=== PATIENT | female | born 1950 | race Caucasian/White ===

== ENCOUNTER 2019-12-25 18:29 | Emergency (ER) | payer BC, MEDICARE ==
[~2019-12-25] VITALS: Ht 167.6 cm; Wt 122.5 kg
[~2019-12-25 18:29] MED LIST: ADULT LOW DOSE81 MG; KLOR-CON20 MEQ; LASIX40 MG; METFORMIN HYDRO25 GM; NORVASC10 MG; TOPROL XL50 MG; ZESTRIL20 MG
--- NOTE | 2019-12-25 20:24 | Diagnostic Imaging Report ---
EXAMINATION: Head CT HISTORY: Status post fall, trauma, pain COMPARISON: None. TECHNIQUE: Multidetector axial images were obtained without contrast from the foramen magnum to the vertex . The images were reconstructed using brain and bone algorithms. Thin section brain images were reformatted into coronal and sagittal planes. Image quality: Motion/streaking artifact limits the evaluation of the skull base and posterior cranial fossa. Dose modulation, iterative reconstruction, and/or weight based adjustment of the mA/kV was utilized to reduce the radiation dose to as low as reasonably achievable. FINDINGS: Parenchyma: 1. No abnormal densities. 2. No mass or hemorrhage. No CT evidence of acute territorial vascular insult. Extra-axial spaces:No abnormal density. No extra-axial fluid collections Brain volume: Normal for age. Ventricles: No hydrocephalus or displacement. Arteries: No density suggestive of thrombus. Dural sinuses: No abnormal density. Foramen magnum: No mass, Chiari malformation, or basilar invagination. Sella: No obvious mass. Paranasal/mastoid sinuses: Imaged portions unremarkable. Skull/Scalp: No lytic or blastic lesions. No fractures. IMPRESSION: No intracranial abnormalities, particularly no post traumatic hemorrhage. Signed by: Dr. Shaila Houston M.D. on 12/25/2019 8:22 PM
--- NOTE | 2019-12-25 20:29 | Diagnostic Imaging Report ---
Exam: Right elbow, 3 views History: Fall on right elbow Comparison: None. Findings: There is normal bone mineralization. No acute, displaced fracture or dislocation. Joint spaces relatively preserved. Enthesophyte at the ulna triceps insertion. No anterior or posterior fat pad elevation. No abnormal soft tissue calcification or soft tissue defect. No soft tissue swelling. Impression: 1. No acute, displaced fracture or dislocation. Signed by: Dr. Nathen Eubanks M.D. on 12/25/2019 8:26 PM
[2019-12-25] MEDS ORDERED: NEOMYCIN/POLYMYX/BACITR OINT 0.9 GM PKT TOP ONE (22:00)
[2019-12-25] MEDS ORDERED: HYDROCODONE/APAP 5MG-325MG TAB PO ONE (22:15)
== END 2019-12-25 22:40 | disposition home or self-care (01) ==
LOC: ER 18:29
DX: S06.0X1A Concussion with loss of consciousness of 30 minutes or less, initial encounter (principal); S51.011A Laceration without foreign body of right elbow, initial encounter; W10.8XXA Fall (on) (from) other stairs and steps, initial encounter; Y93.01 Activity, walking, marching and hiking; Y92.008 Other place in unspecified non-institutional (private) residence as the place of occurrence of the external cause
CPT/HCPCS: 70450; 99284

== ENCOUNTER 2022-12-25 10:56 | Outpatient (RCR) | payer MEDICARE | END 2022-12-29 | LOC: PT 10:56 | PROVIDERS: ATTEND Physical Medicine & Rehabilitation | DX: M25.512 Pain in left shoulder (principal); M25.612 Stiffness of left shoulder, not elsewhere classified ==

== ENCOUNTER 2023-02-05 10:00 | Outpatient (RCR) | payer MEDICARE | END 2023-02-28 | LOC: PT 10:00 | PROVIDERS: ATTEND Physical Medicine & Rehabilitation | DX: M25.512 Pain in left shoulder (principal) ==

== ENCOUNTER → 2023-04-30 | Outpatient (RCR) | payer MEDICARE | LOC: PT 04-01 16:46 | PROVIDERS: ATTEND Orthopaedic Surgery Sports Medicine | DX: M75.102 Unspecified rotator cuff tear or rupture of left shoulder, not specified as traumatic (principal) ==

== ENCOUNTER 2023-08-20 15:03 | Emergency (ER) | payer MEDICARE ==
[~2023-08-20] VITALS: Ht 167.6 cm; Wt 102.5 kg
[~2023-08-20 15:03] MED LIST changes: +CARDIZEM LA300 MG; +CEPHALEXIN500 MG PO; +COLCHICINE0.6 M1 PO; +CYMBALTA30 MG PO; -LASIX40 MG; +LASIX40 MG PO; +METFORMIN HCL500 MG PO; +METOPROLOL SUCC50 MG PO; +MINOCYCLINE HCL50 MG PO; +PRAVASTATIN SOD40 MG; +SYNTHROID125 MCG PO; +VASCEPA1 GM; +VITAMIN D350 MCG; -ZESTRIL20 MG; +ZESTRIL20 MG PO
[2023-08-20 15:39] VITALS: O2SAT 97
[2023-08-20] MEDS ORDERED: KETOROLAC TROMETHAMINE 30 MG/ML VIAL IV STA (15:53)
[2023-08-20] MEDS ORDERED: CLINDAMYCIN PHOS 900MG/ 50ML 50 ML IV ONE (16:15)
[2023-08-20 16:17] LABS: BASOPHILS % 0.4 % (0.0-1.0); EOSINOPHILS # (AUTO) 0.1 (0.0-0.4); HEMATOCRIT 37.4 % (34.2-44.1); HEMOGLOBIN 13.2 g/dL (12.0-16.0); LYMPHOCYTES # (AUTO) 1.4 (1.0-3.2); LYMPHOCYTES % 13.3 % (18.0-39.1); MEAN CORPUSCULAR HGB CONC 35.3 g/dL (31-35); MONOCYTES % 8.9 % (4.4-11.3); NEUTROPHILS # (AUTO) 8.2 (2.1-6.9); NEUTROPHILS % 75.7 % (38.7-80.0); PLATELET COUNT 287 x10e3/uL (140-360); RED CELL DISTRIBUTION WIDTH 13.1 % (11.7-14.4); WHITE BLOOD COUNT 10.81 x10e3/uL (4.8-10.8)
[2023-08-20 16:31] LABS: ANION GAP 16.7 mmol/L (8-16); CALCIUM 9.7 mg/dL (8.4-10.2); CREATININE, SERUM 1.02 mg/dL (0.57-1.11); POTASSIUM 3.7 mmol/L (3.5-5.1)
[2023-08-20] MEDS ORDERED: ONDANSETRON HCL INJ 2MG/ML 2ML 2 MG/ML VIAL IV STA (16:45)
[2023-08-20] MEDS ORDERED: ONDANSETRON HCL INJ 2MG/ML 2ML 2 MG/ML VIAL ONE (16:49)
[2023-08-20] MEDS ORDERED: ULTRAM 50MG50 MG PO (17:39)
[2023-08-20] MEDS ORDERED: CEPHALEXIN500 MG PO (17:39)
== END 2023-08-20 18:35 | disposition home or self-care (01) ==
LOC: ER 15:13
DX: L03.114 Cellulitis of left upper limb (principal); L03.012 Cellulitis of left finger; M19.042 Primary osteoarthritis, left hand; E11.65 Type 2 diabetes mellitus with hyperglycemia; I10 Essential (primary) hypertension; E78.5 Hyperlipidemia, unspecified; E03.9 Hypothyroidism, unspecified; I25.10 Atherosclerotic heart disease of native coronary artery without angina pectoris; M10.9 Gout, unspecified
CPT/HCPCS: 36415; 73130; 80048; 85025; 87040; 87071; 87205; 99284; J1885; J2405; 87186

== ENCOUNTER 2023-08-22 11:39 | Inpatient (IN) | payer MEDICARE ==
[2023-08-22] VITALS (7 sets, daily range): BP systolic 130–153; BP diastolic 72–77; PULSE 82–99; RESP 18–20; TEMP 98.2–98.9; O2SAT 90–97
[~2023-08-22] VITALS: Ht 167.6 cm; Wt 102.1 kg
[~2023-08-22 11:39] MED LIST changes: +ULTRAM 50MG50 MG PO
[2023-08-22] MEDS ORDERED: ONDANSETRON HCL INJ 2MG/ML 2ML 2 MG/ML VIAL IV STA (12:04)
[2023-08-22] MEDS ORDERED: SODIUM CHLORIDE 0.9% 1000ML 1,000 ML IV STA ×2 (12:04→12:29)
[2023-08-22] MEDS ORDERED: Vancomycin IV 1 GM in SODIUM CHLORIDE 0.9% 250ML 250 ML IV ONE (12:15)
[2023-08-22] MEDS ORDERED: ACETAMINOPHEN 325 MG TAB PO ONE (12:30)
[2023-08-22 12:36] LABS: BASOPHILS % 0.4 % (0.0-1.0); EOSINOPHILS % 0.3 % (0.0-6.0); HEMOGLOBIN 12.3 g/dL (12.0-16.0); LYMPHOCYTES # (AUTO) 1.2 (1.0-3.2); LYMPHOCYTES % 15.6 % (18.0-39.1); MEAN CORPUSCULAR HEMOGLOBIN 29.7 pg (28-32); MEAN CORPUSCULAR HGB CONC 35.1 g/dL (31-35); MEAN CORPUSCULAR VOLUME 84.5 fL (81-99); MONOCYTES # (AUTO) 0.7 (0.2-0.8); MONOCYTES % 8.5 % (4.4-11.3); NEUTROPHILS # (AUTO) 5.9 (2.1-6.9); NEUTROPHILS % 74.7 % (38.7-80.0); PLATELET COUNT 216 x10e3/uL (140-360); RED BLOOD COUNT 4.14 x10e6/uL (3.6-5.1); RED CELL DISTRIBUTION WIDTH 13.2 % (11.7-14.4)
[2023-08-22 12:46] LABS: INR 1.07; PROTHROMBIN TIME 14.6 seconds (11.9-14.5)
[2023-08-22 12:47] LABS: PARTIAL THROMBOPLASTIN TIME 32.6 seconds (23.8-35.5)
[2023-08-22 12:56] LABS: ALBUMIN 3.1 g/dL (3.5-5.0); ALBUMIN/GLOBULIN RATIO 0.9 (0.8-2.0); ANION GAP 16.2 mmol/L (8-16); CALCIUM 9.3 mg/dL (8.4-10.2); CREATININE, SERUM 0.99 mg/dL (0.57-1.11); MAGNESIUM 1.4 MG/DL (1.3-2.1); POTASSIUM 3.2 mmol/L (3.5-5.1)
[2023-08-22] MEDS ORDERED: ONDANSETRON HCL INJ 2MG/ML 2ML 2 MG/ML VIAL IV PRN (13:45)
[2023-08-22] MEDS ORDERED: Morphine 4mg INJECTION 4 MG/ML INJ IV PRN (13:45)
[2023-08-22] MEDS: SODIUM CHLORIDE 0.9% 1000ML 1,000 ML IV SCH ×2 (13:45→18:03)
[2023-08-22] MEDS ORDERED: VASCEPA1 GM PO (16:58)
[2023-08-22] MEDS ORDERED: COLCHICINE0.6 M1 PO (16:58)
[2023-08-22] MEDS ORDERED: PRAVASTATIN SOD40 MG PO (16:58)
[2023-08-22] MEDS: ACETAMINOPHEN 325 MG TAB PO PRN (18:02)
[2023-08-22] MEDS: Vancomycin IV 1 GM in SODIUM CHLORIDE 0.9% 250ML 250 ML IV SCH (18:03)
[2023-08-23] VITALS (8 sets, daily range): BP systolic 144–158; BP diastolic 61–78; PULSE 85–100; RESP 17–20; TEMP 97.9–99.2; O2SAT 93–100
[2023-08-23] MEDS: Vancomycin IV 1 GM in SODIUM CHLORIDE 0.9% 250ML 250 ML IV SCH ×2 (05:19→16:16)
[2023-08-23] MEDS: SODIUM CHLORIDE 0.9% 1000ML 1,000 ML IV SCH ×2 (05:20→20:11)
[2023-08-23] MEDS: ACETAMINOPHEN 325 MG TAB PO PRN ×3 (05:40→20:19)
[2023-08-23 06:09] LABS: BASOPHILS % 0.7 % (0.0-1.0); EOSINOPHILS # (AUTO) 0.1 (0.0-0.4); EOSINOPHILS % 1.5 % (0.0-6.0); HEMATOCRIT 32.4 % (34.2-44.1); HEMOGLOBIN 11.1 g/dL (12.0-16.0); LYMPHOCYTES % 18.6 % (18.0-39.1); MEAN CORPUSCULAR HEMOGLOBIN 29.6 pg (28-32); MEAN CORPUSCULAR HGB CONC 34.3 g/dL (31-35); MEAN CORPUSCULAR VOLUME 86.4 fL (81-99); MONOCYTES # (AUTO) 0.5 (0.2-0.8); MONOCYTES % 8.8 % (4.4-11.3); NEUTROPHILS # (AUTO) 3.8 (2.1-6.9); PLATELET COUNT 149 x10e3/uL (140-360); RED BLOOD COUNT 3.75 x10e6/uL (3.6-5.1); RED CELL DISTRIBUTION WIDTH 13.5 % (11.7-14.4); WHITE BLOOD COUNT 5.47 x10e3/uL (4.8-10.8)
[2023-08-23 06:59] LABS: ALBUMIN 2.7 g/dL (3.5-5.0); ALBUMIN/GLOBULIN RATIO 0.9 (0.8-2.0); ANION GAP 13.5 mmol/L (8-16); CALCIUM 8.5 mg/dL (8.4-10.2); CREATININE, SERUM 0.95 mg/dL (0.57-1.11); POTASSIUM 3.5 mmol/L (3.5-5.1)
[2023-08-23] MEDS ORDERED: ONDANSETRON HCL 4 MG ORAL DISINTEGRATING TAB PO PRN (09:15)
[2023-08-24] VITALS (12 sets, daily range): BP systolic 130–163; BP diastolic 71–110; PULSE 74–97; RESP 17–18; TEMP 97.8–99.1; O2SAT 94–100
[2023-08-24] MEDS: ACETAMINOPHEN 325 MG TAB PO PRN ×2 (03:46→12:14)
[2023-08-24] MEDS ORDERED: POLYETHYLENE GLYCOL 3350 17 GM PACK PO PRN (04:30)
[2023-08-24] MEDS ORDERED: METOPROLOL TARTRATE INJ 1 MG/ML VIAL IV PRN (04:30)
[2023-08-24] MEDS: SODIUM CHLORIDE 0.9% 1000ML 1,000 ML IV SCH ×2 (04:59→15:45)
[2023-08-24] MEDS ORDERED: FUROSEMIDE 40 MG TAB PO PRN (05:00)
[2023-08-24] MEDS: Vancomycin IV 1 GM in SODIUM CHLORIDE 0.9% 250ML 250 ML IV SCH ×2 (05:00→16:28)
[2023-08-24] MEDS: LEVOTHYROXINE SODIUM 112 MCG TAB PO SCH (05:09)
[2023-08-24] MEDS: LEVOTHYROXINE SODIUM 25 MCG TABLET PO SCH (05:09)
[2023-08-24] MEDS ORDERED: MUPIROCIN 2% OINT 22 GM TUBE ONE (06:00)
[2023-08-24] MEDS ORDERED: BUPIVACAINE HCL 0.5% INJ 30 ML VIAL INJ ONE (06:00)
[2023-08-24 06:07] LABS: BASOPHILS % 0.8 % (0.0-1.0); EOSINOPHILS # (AUTO) 0.1 (0.0-0.4); EOSINOPHILS % 3.3 % (0.0-6.0); HEMATOCRIT 28.9 % (34.2-44.1); HEMOGLOBIN 10.3 g/dL (12.0-16.0); LYMPHOCYTES # (AUTO) 1.2 (1.0-3.2); MEAN CORPUSCULAR HEMOGLOBIN 31.7 pg (28-32); MEAN CORPUSCULAR HGB CONC 35.6 g/dL (31-35); MEAN CORPUSCULAR VOLUME 88.9 fL (81-99); MONOCYTES # (AUTO) 0.4 (0.2-0.8); MONOCYTES % 11.5 % (4.4-11.3); NEUTROPHILS # (AUTO) 1.9 (2.1-6.9); NEUTROPHILS % 51.9 % (38.7-80.0); PLATELET COUNT 147 x10e3/uL (140-360); RED BLOOD COUNT 3.25 x10e6/uL (3.6-5.1); RED CELL DISTRIBUTION WIDTH 14.1 % (11.7-14.4); WHITE BLOOD COUNT 3.66 x10e3/uL (4.8-10.8)
[2023-08-24 06:30] LABS: ANION GAP 12.4 mmol/L (8-16); CALCIUM 8.4 mg/dL (8.4-10.2); CREATININE, SERUM 0.88 mg/dL (0.57-1.11); MAGNESIUM 1.7 MG/DL (1.3-2.1); PHOSPHORUS 2.4 MG/DL (2.3-4.7); POTASSIUM 3.4 mmol/L (3.5-5.1)
[2023-08-24 07:11] LABS: FREE T4 (FREE THYROXINE) 0.69 ng/dL (0.8-1.8); THYROID STIMULATING HORMONE 3.798 uIU/mL (0.350-4.940)
[2023-08-24] MEDS ORDERED: MAGNESIUM SULF 1GRAM/DEXTROSE 100 ML IV ONE (08:00)
[2023-08-24] MEDS: ICOSAPENT ETHYL 1 GM CAPSULE PO SCH ×2 (09:00→16:31)
[2023-08-24] MEDS: METFORMIN HCL 500 MG TAB PO SCH ×2 (09:00→16:31)
[2023-08-24] MEDS: DOCUSATE SODIUM 100 MG CAP PO SCH ×2 (09:00→16:30)
[2023-08-24] MEDS: METOPROLOL SUCCINATE 50 MG TAB XL PO SCH ×2 (09:00→16:32)
[2023-08-24] MEDS ORDERED: POTASSIUM CHLORIDE 20MEQ/100ML 100 ML IV ONE (09:30)
[2023-08-24] MEDS: DULOXETINE HCL 30 MG DELAYED RELEASE PO SCH (10:23)
[2023-08-24] MEDS: LISINOPRIL 10 MG TAB PO SCH (10:23)
[2023-08-24] MEDS: DILTIAZEM HCL ER 120 MG CAP PO SCH (10:25)
[2023-08-24] MEDS ORDERED: SEVOFLURANE INHAL SOLN 250 ML PEN BTL ONE (13:07)
[2023-08-24] MEDS ORDERED: DEXAMETHASONE SOD PHOS INJ 4 MG/ML SDV ONE (13:07)
[2023-08-24] MEDS ORDERED: PROPOFOL IV EMULSION 10 MG/ML 20 ML VIAL ONE (13:07)
[2023-08-24] MEDS ORDERED: ONDANSETRON HCL INJ 2MG/ML 2ML 2 MG/ML VIAL ONE (13:07)
[2023-08-24] MEDS ORDERED: MIDAZOLAM HCL 2 MG/2 ML VIAL ONE (13:58)
[2023-08-24] MEDS ORDERED: FENTANYL CITRATE/PF 100MCG/2 ML INJ ONE (13:58)
[2023-08-24] MEDS ORDERED: DEXTROSE 50% SYRINGE 50 ML IV PRN (19:45)
[2023-08-24] MEDS ORDERED: INSULIN GLARGINE 100 UNITS/ML VIAL SQ ONE (19:45)
[2023-08-24] MEDS: PRAVASTATIN 20 MG TAB PO SCH (21:18)
[2023-08-24] MEDS: INSULIN REGULAR, HUMAN 100 UNIT/1 ML SQ SCH (21:32)
[2023-08-25] VITALS (10 sets, daily range): BP systolic 122–140; BP diastolic 61–74; PULSE 57–71; RESP 14–20; TEMP 97.9–98.6; O2SAT 94–99
[2023-08-25] MEDS: SODIUM CHLORIDE 0.9% 1000ML 1,000 ML IV SCH ×3 (04:38→21:15)
[2023-08-25] MEDS: Vancomycin IV 1 GM in SODIUM CHLORIDE 0.9% 250ML 250 ML IV SCH ×2 (04:38→18:04)
[2023-08-25] MEDS: LEVOTHYROXINE SODIUM 112 MCG TAB PO SCH (06:34)
[2023-08-25] MEDS: LEVOTHYROXINE SODIUM 25 MCG TABLET PO SCH (06:34)
[2023-08-25 07:02] LABS: BASOPHILS % 0.4 % (0.0-1.0); HEMATOCRIT 29.7 % (34.2-44.1); HEMOGLOBIN 10.3 g/dL (12.0-16.0); LYMPHOCYTES # (AUTO) 1.1 (1.0-3.2); LYMPHOCYTES % 22.2 % (18.0-39.1); MEAN CORPUSCULAR HEMOGLOBIN 29.6 pg (28-32); MEAN CORPUSCULAR HGB CONC 34.7 g/dL (31-35); MEAN CORPUSCULAR VOLUME 85.3 fL (81-99); MONOCYTES # (AUTO) 0.3 (0.2-0.8); MONOCYTES % 6.5 % (4.4-11.3); NEUTROPHILS # (AUTO) 3.4 (2.1-6.9); NEUTROPHILS % 70.1 % (38.7-80.0); PLATELET COUNT 206 x10e3/uL (140-360); RED BLOOD COUNT 3.48 x10e6/uL (3.6-5.1); RED CELL DISTRIBUTION WIDTH 13.1 % (11.7-14.4)
[2023-08-25 07:24] LABS: ANION GAP 10.8 mmol/L (8-16); CALCIUM 8.2 mg/dL (8.4-10.2); CREATININE, SERUM 0.94 mg/dL (0.57-1.11); POTASSIUM 3.8 mmol/L (3.5-5.1)
[2023-08-25] MEDS: INSULIN REGULAR, HUMAN 100 UNIT/1 ML SQ SCH ×4 (08:49→21:00)
[2023-08-25] MEDS: METFORMIN HCL 500 MG TAB PO SCH ×2 (08:50→16:42)
[2023-08-25] MEDS: DULOXETINE HCL 30 MG DELAYED RELEASE PO SCH (08:50)
[2023-08-25] MEDS: ICOSAPENT ETHYL 1 GM CAPSULE PO SCH ×2 (08:50→16:57)
[2023-08-25] MEDS: LISINOPRIL 10 MG TAB PO SCH (08:50)
[2023-08-25] MEDS: DILTIAZEM HCL ER 120 MG CAP PO SCH (08:51)
[2023-08-25] MEDS: DOCUSATE SODIUM 100 MG CAP PO SCH ×2 (08:52→16:41)
[2023-08-25] MEDS: METOPROLOL SUCCINATE 50 MG TAB XL PO SCH ×2 (08:52→16:42)
[2023-08-25] MEDS: ACETAMINOPHEN 325 MG TAB PO PRN (11:17)
[2023-08-25] MEDS: PRAVASTATIN 20 MG TAB PO SCH (21:14)
[2023-08-26] VITALS (12 sets, daily range): BP systolic 135–156; BP diastolic 52–81; PULSE 51–65; RESP 16–19; TEMP 97.6–98.6; O2SAT 94–99
[2023-08-26] MEDS: LEVOTHYROXINE SODIUM 112 MCG TAB PO SCH (04:59)
[2023-08-26] MEDS: LEVOTHYROXINE SODIUM 25 MCG TABLET PO SCH (04:59)
[2023-08-26] MEDS: Vancomycin IV 1 GM in SODIUM CHLORIDE 0.9% 250ML 250 ML IV SCH (04:59)
[2023-08-26] MEDS: DOCUSATE SODIUM 100 MG CAP PO SCH ×2 (09:00→17:00)
[2023-08-26] MEDS: DILTIAZEM HCL ER 120 MG CAP PO SCH (09:00)
[2023-08-26] MEDS: METOPROLOL SUCCINATE 50 MG TAB XL PO SCH ×2 (09:00→17:00)
[2023-08-26] MEDS: DULOXETINE HCL 30 MG DELAYED RELEASE PO SCH (09:08)
[2023-08-26] MEDS: ICOSAPENT ETHYL 1 GM CAPSULE PO SCH ×2 (09:08→17:47)
[2023-08-26] MEDS: METFORMIN HCL 500 MG TAB PO SCH ×2 (09:08→17:47)
[2023-08-26] MEDS: SODIUM CHLORIDE 0.9% 1000ML 1,000 ML IV SCH (09:09)
[2023-08-26] MEDS: LISINOPRIL 10 MG TAB PO SCH (09:10)
[2023-08-26] MEDS: INSULIN REGULAR, HUMAN 100 UNIT/1 ML SQ SCH ×4 (09:11→22:48)
[2023-08-26] MEDS ORDERED: SODIUM CHLORIDE 0.9% IV SCH (14:00)
[2023-08-26] MEDS ORDERED: CEFAZOLIN SODIUM IV SCH (14:00)
[2023-08-26] MEDS: CEFAZOLIN SODIUM 2 GM in SODIUM CHLORIDE 0.9% 100 ML IV SCH ×2 (14:57→22:53)
[2023-08-26] MEDS: ACETAMINOPHEN 325 MG TAB PO PRN (18:01)
[2023-08-26] MEDS: PRAVASTATIN 20 MG TAB PO SCH (22:53)
[2023-08-27] VITALS (9 sets, daily range): BP systolic 146–169; BP diastolic 71–83; PULSE 58–69; RESP 16–20; TEMP 97.5–98.4; O2SAT 94–99
[2023-08-27] MEDS: LEVOTHYROXINE SODIUM 25 MCG TABLET PO SCH (05:14)
[2023-08-27] MEDS: LEVOTHYROXINE SODIUM 112 MCG TAB PO SCH (05:14)
[2023-08-27] MEDS: CEFAZOLIN SODIUM 2 GM in SODIUM CHLORIDE 0.9% 100 ML IV SCH ×2 (06:37→14:04)
[2023-08-27] MEDS: INSULIN REGULAR, HUMAN 100 UNIT/1 ML SQ SCH ×3 (07:30→16:30)
[2023-08-27] MEDS ORDERED: MUPIROCIN 2% OINT 22 GM TUBE TOP SCH (09:00)
[2023-08-27] MEDS: DOCUSATE SODIUM 100 MG CAP PO SCH ×2 (09:00→17:00)
[2023-08-27] MEDS: METFORMIN HCL 500 MG TAB PO SCH ×2 (09:22→17:25)
[2023-08-27] MEDS: DULOXETINE HCL 30 MG DELAYED RELEASE PO SCH (09:22)
[2023-08-27] MEDS: DILTIAZEM HCL ER 120 MG CAP PO SCH (09:22)
[2023-08-27] MEDS: LISINOPRIL 10 MG TAB PO SCH (09:22)
[2023-08-27] MEDS: ICOSAPENT ETHYL 1 GM CAPSULE PO SCH ×2 (09:23→17:25)
[2023-08-27] MEDS: METOPROLOL SUCCINATE 50 MG TAB XL PO SCH ×2 (09:24→17:26)
[2023-08-27] MEDS: ACETAMINOPHEN 325 MG TAB PO PRN (13:45)
== END 2023-08-27 18:19 | disposition home or self-care (01) | DRG 854 ==
LOC: ER 11:48 → ERHOLD 13:45 → MED/SURG3 16:28
PROVIDERS: ADMIT Internal Medicine; ATTEND Internal Medicine
PROC: 0L980ZZ Drainage of Left Hand Tendon, Open Approach (ICD-10-PCS; principal; 2023-08-22)
PROC: 02HV33Z Insertion of Infusion Device into Superior Vena Cava, Percutaneous Approach (ICD-10-PCS; 2023-08-22)
PROC: 3E04329 Introduction of Other Anti-infective into Central Vein, Percutaneous Approach (ICD-10-PCS; 2023-08-22)
PROC: B548ZZA Ultrasonography of Superior Vena Cava, Guidance (ICD-10-PCS; 2023-08-22)
DX: A41.01 Sepsis due to Methicillin susceptible Staphylococcus aureus (principal); L02.512 Cutaneous abscess of left hand; L03.022 Acute lymphangitis of left finger; E11.9 Type 2 diabetes mellitus without complications; M10.9 Gout, unspecified; E03.9 Hypothyroidism, unspecified; I25.10 Atherosclerotic heart disease of native coronary artery without angina pectoris; I10 Essential (primary) hypertension; E78.5 Hyperlipidemia, unspecified; K58.1 Irritable bowel syndrome with constipation; E83.42 Hypomagnesemia; E87.6 Hypokalemia; Z79.890 Hormone replacement therapy; Z79.899 Other long term (current) drug therapy; Z79.84 Long term (current) use of oral hypoglycemic drugs; Z20.822 Contact with and (suspected) exposure to COVID-19
CPT/HCPCS: 36415; 36568; 36569; 71045; 80048; 80053; 80202; 82948; 83605; 83735; 84100; 84439; 84443; 84484; 85025; 85610; 85730; 87040; 87071; 87075; 87186; 87205; 93005; 93306; 94799; 99284; J1100; J1815; J2250; J2405; J2543; J3475; J3480; J7030; J7050; U0002